=== PATIENT | male | born 1975 | race Caucasian/White ===

== ENCOUNTER 2024-05-26 16:54 | Inpatient (IN) | payer BC ==
[~2024-05-26] VITALS: Ht 165.1 cm; Wt 68.5 kg
[2024-05-26 17:04] VITALS: BP 131/82; PULSE 94; RESP 18; TEMP 97.1; O2SAT 98
[2024-05-26 17:50] LABS: BASOPHILS % (AUTO) 0.3 % (0.0-2.0); EOSINOPHILS # (AUTO) 0.3 K/uL (0-0.4); EOSINOPHILS % (AUTO) 2.5 % (0.0-4.0); HEMATOCRIT 49.2 % (36-52); HEMOGLOBIN 17.1 g/dL (12.0-18.0); LYMPHOCYTES # (AUTO) 1.2 K/uL (2.0-11.5); LYMPHOCYTES % (AUTO) 9.5 % (20.5-51.1); MEAN CORPUSCULAR HEMOGLOBIN 31 pg (27-31); MEAN CORPUSCULAR HGB CONC 35 g/dL (33-37); MEAN CORPUSCULAR VOLUME 88.3 fL (80-94); MONOCYTES # (AUTO) 0.7 K/uL (0.8-1.0); MONOCYTES % (AUTO) 5.7 % (1.7-9.3); NEUTROPHILS # (AUTO) 10.6 K/uL (1.8-7.7); PLATELET COUNT (AUTO) 315 K/uL (140-450); RED BLOOD CELL COUNT(AUTO) 5.57 MIL/uL (4.20-6.10); RED CELL DISTRIBUTION WIDTH 12.6 % (11.6-13.7)
[2024-05-26 17:55] VITALS: O2SAT 95
[2024-05-26 17:58] LABS: CALCIUM 10.1 mg/dL (8.5-10.1); CARBON DIOXIDE 26.9 mmol/L (21-32); CREATININE 0.7 mg/dL (0.6-1.3); POTASSIUM 3.9 mmol/L (3.5-5.1)
[2024-05-26 18:04] LABS: INR 0.98 (0.8-1.2); PARTIAL THROMBOPLASTIN TIME 25.8 secs (22-35.6); PROTHROMBIN TIME 10.3 secs (10.8-13.4)
[2024-05-26] MEDS: ASPIRIN 81 MG TAB.CHEW PO ONE (19:37)
[2024-05-26] MEDS ORDERED: fentaNYL citrate 0.05 MG/ML VIAL IVP ONE (21:00)
[2024-05-26] MEDS: MORPHINE SULFATE 4 MG/ML SYR IVP ONE (21:11)
[2024-05-26] MEDS: ENOXAPARIN 80 MG/0.8 ML SYR SUBQ ONE (21:13)
[2024-05-26] MEDS ORDERED: ACETAMINOPHEN 325 MG TAB PO PRN (22:45)
[2024-05-26] MEDS ORDERED: ALUMINUM HYD/MAG/SIMETHICONE 30 ML UDC PO PRN (22:45)
[2024-05-26] MEDS ORDERED: ONDANSETRON 4 MG/2 ML VIAL IVP PRN (22:45)
[2024-05-26] MEDS ORDERED: LORazepam 1 MG TAB PO PRN (22:45)
[2024-05-26] MEDS ORDERED: NITROGLYCERIN 0.4 MG TAB SL PRN (22:45)
[2024-05-26] MEDS ORDERED: MORPHINE SULFATE 2 MG/ML SYR IVP PRN (22:45)
[2024-05-26] MEDS ORDERED: HEPARIN PER PHARMACY MC PRN (22:50)
[2024-05-26] MEDS ORDERED: hePARIN / DEXT 5% PREMIX 250 ML IV SCH ×2 (22:50→23:40)
[2024-05-26] MEDS ORDERED: hePARIN / DEXT 5% PREMIX 250 ML IV ONE (23:10)
[2024-05-27] MEDS: hePARIN / DEXT 5% PREMIX 250 ML IV SCH (00:44)
[2024-05-27 06:43] LABS: BASOPHILS # (AUTO) 0.1 K/uL (0.00-0.22); BASOPHILS % (AUTO) 0.4 % (0.0-2.0); EOSINOPHILS # (AUTO) 0.4 K/uL (0-0.4); EOSINOPHILS % (AUTO) 2.9 % (0.0-4.0); HEMATOCRIT 46.1 % (36-52); HEMOGLOBIN 16.2 g/dL (12.0-18.0); LYMPHOCYTES # (AUTO) 1.5 K/uL (2.0-11.5); MEAN CORPUSCULAR HEMOGLOBIN 31 pg (27-31); MEAN CORPUSCULAR HGB CONC 35 g/dL (33-37); MEAN CORPUSCULAR VOLUME 87.5 fL (80-94); MONOCYTES # (AUTO) 1.1 K/uL (0.8-1.0); MONOCYTES % (AUTO) 8.9 % (1.7-9.3); NEUTROPHILS # (AUTO) 9.6 K/uL (1.8-7.7); NEUTROPHILS % (AUTO) 75.8 % (42.2-75.2); PLATELET COUNT (AUTO) 287 K/uL (140-450); RED BLOOD CELL COUNT(AUTO) 5.26 MIL/uL (4.20-6.10); RED CELL DISTRIBUTION WIDTH 12.9 % (11.6-13.7); WHITE BLOOD COUNT (AUTO) 12.6 K/uL (4.8-10.8)
[2024-05-27 06:52] LABS: CALCIUM 9.2 mg/dL (8.5-10.1); CARBON DIOXIDE 25.7 mmol/L (21-32); CREATININE 0.7 mg/dL (0.6-1.3); POTASSIUM 3.7 mmol/L (3.5-5.1)
[2024-05-27 08:40] VITALS: BP 127/83; PULSE 95; RESP 16; TEMP 98; O2SAT 99
[2024-05-27] MEDS: METOPROLOL 25 MG TAB PO SCH (09:00)
[2024-05-27] MEDS: LOSARTAN 25 MG TAB PO SCH (09:00)
[2024-05-27 09:19] LABS: INR 1.02 (0.8-1.2); PROTHROMBIN TIME 10.7 secs (10.8-13.4)
[2024-05-27] MEDS: ASPIRIN 81 MG TAB.CHEW PO SCH (09:53)
[2024-05-27] MEDS: DOCUSATE SODIUM 100 MG GELCAP PO SCH (09:53)
[2024-05-27 11:21] VITALS: PULSE 95; O2SAT 99
[2024-05-27 12:00] VITALS: BP 119/77; PULSE 72; PULSE 82; RESP 20; TEMP 97.8; O2SAT 98
[2024-05-27] MEDS: SERTRALINE 50 MG TAB PO SCH (12:24)
[2024-05-27 15:32] LABS: CHOL/HDL RATIO 5.1 (1-4.5)
[2024-05-27 16:00] VITALS: BP 123/81; PULSE 75; PULSE 86; RESP 20; TEMP 97.9; O2SAT 100
[2024-05-27 20:00] VITALS: PULSE 86; PULSE 87; RESP 20; O2SAT 100
[2024-05-27] MEDS: SIMVASTATIN 20 MG TAB PO SCH (21:14)
[2024-05-27 22:00] VITALS: BP 118/78; PULSE 87; RESP 20; TEMP 98.2; O2SAT 100
[2024-05-28] VITALS: BP 114/76; PULSE 70; PULSE 84; RESP 20; TEMP 97.9; O2SAT 100
[2024-05-28 04:00] VITALS: BP 121/70; PULSE 66; PULSE 80; RESP 19; TEMP 97.6; O2SAT 100
[2024-05-28 08:00] VITALS: BP 99/52; PULSE 63; RESP 20; TEMP 97.8; O2SAT 100; O2SAT 96
[2024-05-28 12:00] VITALS: BP 103/67; PULSE 58; PULSE 68; RESP 17; TEMP 97; O2SAT 93
[2024-05-28 16:00] VITALS: BP 96/51; PULSE 81; PULSE 88; RESP 18; TEMP 98; O2SAT 96
[2024-05-28 20:00] VITALS: BP 107/47; PULSE 73; RESP 18; TEMP 97.8; O2SAT 96
[2024-05-28] MEDS: ZOLPIDEM 5 MG TAB PO PRN (20:58)
[2024-05-29] VITALS: BP 114/66; PULSE 63; RESP 18; TEMP 98.8; O2SAT 95
[2024-05-29 03:17] VITALS: BP 118/61; PULSE 68; RESP 18; TEMP 98.2
[2024-05-29 04:00] VITALS: BP 118/61; PULSE 58; PULSE 68; RESP 18; TEMP 98.2; O2SAT 94
[2024-05-29 06:09] LABS: BASOPHILS # (AUTO) 0.1 K/uL (0.00-0.22); BASOPHILS % (AUTO) 0.7 % (0.0-2.0); EOSINOPHILS # (AUTO) 0.5 K/uL (0-0.4); EOSINOPHILS % (AUTO) 4.4 % (0.0-4.0); HEMATOCRIT 43.4 % (36-52); HEMOGLOBIN 15.2 g/dL (12.0-18.0); LYMPHOCYTES # (AUTO) 1.9 K/uL (2.0-11.5); MEAN CORPUSCULAR HEMOGLOBIN 31 pg (27-31); MEAN CORPUSCULAR HGB CONC 35 g/dL (33-37); MEAN CORPUSCULAR VOLUME 88.5 fL (80-94); MONOCYTES # (AUTO) 1.5 K/uL (0.8-1.0); MONOCYTES % (AUTO) 13.2 % (1.7-9.3); NEUTROPHILS # (AUTO) 7.3 K/uL (1.8-7.7); NEUTROPHILS % (AUTO) 64.7 % (42.2-75.2); PLATELET COUNT (AUTO) 288 K/uL (140-450); RED CELL DISTRIBUTION WIDTH 12.9 % (11.6-13.7); WHITE BLOOD COUNT (AUTO) 11.2 K/uL (4.8-10.8)
[2024-05-29 06:13] LABS: ANION GAP 11.3 (8-16); CARBON DIOXIDE 28.6 mmol/L (21-32); CREATININE 0.8 mg/dL (0.6-1.3); POTASSIUM 3.9 mmol/L (3.5-5.1)
[2024-05-29 06:45] LABS: INR 1.03 (0.8-1.2); PROTHROMBIN TIME 10.8 secs (10.8-13.4)
== END 2024-05-29 07:41 | disposition short-term general hospital (02) | DRG 190 ==
LOC: MED 16:54 → MTU 22:48 → MMU 05-27 06:51
PROVIDERS: ADMIT Student in an Organized Health Care Education/Training Program; ATTEND Student in an Organized Health Care Education/Training Program
DX: I21.4 Non-ST elevation (NSTEMI) myocardial infarction (principal); R65.10 Systemic inflammatory response syndrome (SIRS) of non-infectious origin without acute organ dysfunction; Z95.1 Presence of aortocoronary bypass graft; F10.10 Alcohol abuse, uncomplicated; F41.9 Anxiety disorder, unspecified; F17.210 Nicotine dependence, cigarettes, uncomplicated; F32.A Depression, unspecified; Z79.899 Other long term (current) drug therapy; I25.10 Atherosclerotic heart disease of native coronary artery without angina pectoris
CPT/HCPCS: 36415; 71045; 80048; 83735; 83880; 84484; 85025; 85610; 85730; 93005; 96372; 96374; 99285; J1644; J1650; J2270